=== PATIENT | male | born 1965 | race Two or more races ===

== ENCOUNTER 2022-04-29 13:50 | Emergency (ER) | payer MEDICAID, OTHER ==
[~2022-04-29] VITALS: Ht 177.8 cm; Wt 75.0 kg
[~2022-04-29 13:50] MED LIST: CALCIUM CHLORIDE 1GM/10ML SYR IV ONE; DEXTROSE 50% WATER 50ML SYRINGE IV ONE; EPINEPHRINE 0.1MG/ML (1:10,000) 10ML SYR ONE; SODIUM BICARBONATE 8.4% 1 MEQ/ML 50ML SYR IV ONE
[2022-04-29] MEDS ORDERED: NOREPINEPHRINE 8 MG in DEXT 5% WATER 242 ML IV STA ×2 (13:57→14:11)
[2022-04-29] MEDS ORDERED: VANCOMYCIN 1G PREMIX 200 ML IV ONE (14:00)
[2022-04-29] MEDS ORDERED: SODIUM CHLORIDE 0.9% 1000ML BAG (SEPSIS BOLUS) IV ONE (14:00)
[2022-04-29] MEDS ORDERED: PIPERACILLIN/TAZ 3.375G PREMIX 50 ML IV ONE (14:00)
[2022-04-29 14:23] LABS: BG BASE EXCESS -4.5 mmol/L (-2.0-2.0); BG CARBOXYHEMOGLOBIN 0.5 % (0.5-1.5); BG DEOXYHEMOGLOBIN 3.8 % (0.0-5.0); BG FRACTION INSPIRED OXYGEN 40; BG HCO3 ACT 18.2 mmol/L (22.0-26.0); BG METHEMOGLOBIN 0.3 % (0.0-1.5); BG OXYGEN SATURATION 96.2 % (92.0-98.5); BG OXYHEMOGLOBIN 95.4 % (94.0-97.0); BG PCO2 23.4 mmHg (35.0-45.0); BG PH 7.509 (7.350-7.450); BG PO2 82.5 mmHg (75.0-100.0); BG SAMPLE SITE RIGHT RADIAL; BG TOTAL HEMOGLOBIN 5.7 g/dL (12.0-18.0); BG VENT MODE VENT - AC
[2022-04-29 14:35] LABS: CHLORIDE 127 mEq/L (98-107)
[2022-04-29 14:38] LABS: INR 1.3; PARTIAL THROMBOPLASTIN TIME 31.3 sec (23.4-31.0); PROTHROMBIN TIME 13.7 sec (9.6-11.0)
[2022-04-29] MEDS ORDERED: PHENYLEPHRINE 50 MG in DEXT 5% WATER 245 ML IV PRN (15:45)
[2022-04-29] MEDS ORDERED: SODIUM CHLORIDE 0.45% 1,000 ML IV SCH (16:00)
[2022-04-29] MEDS: IPRATROPIUM BROMIDE (0.02%) 0.5MG/2.5ML NEB HHN SCH ×2 (16:00→18:00)
[2022-04-29 16:05] VITALS: BP 105/27
[2022-04-29] MEDS ORDERED: DOCUSATE SODIUM 100MG CAPSULE PO PRN (16:15)
[2022-04-29] MEDS ORDERED: ENOXAPARIN 40MG/0.4ML SYR SUBCUT SCH (16:15)
[2022-04-29] MEDS ORDERED: ACETAMINOPHEN 325MG TABLET PO PRN (16:15)
[2022-04-29] MEDS ORDERED: ONDANSETRON HCL 4MG/2ML INJ IV PRN (16:15)
[2022-04-29] MEDS ORDERED: DEXTROSE 5% WATER 1,000 ML IV SCH (16:15)
[2022-04-29] MEDS ORDERED: PIPERACILLIN/TAZOBACTAM 3.375 G in DEXTROSE 5% WATER 50 ML IV SCH ×2 (16:15→22:00)
[2022-04-29] MEDS ORDERED: TRAMADOL 50MG TABLET PO PRN (16:15)
[2022-04-29] MEDS ORDERED: VANCOMYCIN 500MG PREMIX 100 ML IV NR (16:30)
[2022-04-29 16:51] LABS: MEAN CORPUSCULAR HEMOGLOBIN 29.3 pg (28.0-32.0); MEAN CORPUSCULAR VOLUME 92.6 fL (80.0-94.0); MEAN PLATELET VOLUME 11.6 fl (7.4-10.4); PLATELET 70 x1000/uL (130-400); RED BLOOD CELL COUNT 1.86 mill/uL (4.7-6.1); RED CELL DISTRIBUTION WIDTH 20.4 % (11.6-14.6)
[2022-04-29 16:59] LABS: HEMATOCRIT. 17.2 % (42.0-52.0); HEMOGLOBIN. 5.5 g/dL (14.0-18.0)
[2022-04-29] MEDS ORDERED: NOREPINEPHRINE 8 MG in DEXT 5% WATER 242 ML IV PRN ×2 (17:15→17:45)
[2022-04-29] MEDS ORDERED: PHENYLEPHRINE 50 MG in DEXT 5% WATER 245 ML IV STA (17:48)
[2022-04-29 18:04] LABS: PLATELET ESTIMATE DECREASED
[2022-04-29] MEDS ORDERED: FAMOTIDINE 20MG TABLET PO SCH (21:00)
[2022-04-30] MEDS ORDERED: VANCOMYCIN 1.25GM PMX (XELLIA) 250 ML IV SCH (18:00)
== END 2022-04-29 18:28 ==
LOC: ER 14:35
DX: J96.90 Respiratory failure, unspecified, unspecified whether with hypoxia or hypercapnia (principal); R65.21 Severe sepsis with septic shock; J18.9 Pneumonia, unspecified organism; E87.0 Hyperosmolality and hypernatremia; R79.89 Other specified abnormal findings of blood chemistry; I46.9 Cardiac arrest, cause unspecified; D64.9 Anemia, unspecified; R77.8 Other specified abnormalities of plasma proteins; Z20.822 Contact with and (suspected) exposure to COVID-19
CPT/HCPCS: 36415; 36600; 71045; 80053; 82375; 82805; 82962; 83605; 83880; 84145; 84484; 85025; 85610; 85730; 86850; 86900; 86901; 86920; 87040; 87077; 87186; 87426; 87804; 93005; 96361; 96365; 96368; 99291; C9803; J2370; J2543; J3370; J3490; J7030; J7060; Z7610; 94002